=== PATIENT | female | born 1985 | race Caucasian/White ===

== ENCOUNTER 2018-12-15 01:45 | Emergency (ER) | payer OTHER ==
[~2018-12-15] VITALS: Ht 167.6 cm; Wt 85.7 kg
[2018-12-15] MEDS ORDERED: BIRTH CONTROL PO (02:03)
[2018-12-15 03:56] VITALS: BP 112/66
--- NOTE | 2018-12-16 12:45 | EKG ---
[address] [address] [facility] [employer] [place] [address] ELECTROCARDIOGRAM REPORT Name: JAC COKER Room #: [facility]#: [id number] Admission: 12/15/18 Attend Phys: Discharge: 12/15/18 Date of : 89 Report #: [id number] THIS REPORT FOR: //name// [facility] ED Test Date: 2018-12-15 Test Time: 01:55:27 Pat Name: JAC COKER Department: Room: Gender: F Field Services Director: EILEEN : 1985 Requested By: Kami Jamison Order Number: [id number] MD: Raimundo Parra Measurements Intervals [place] Rate: 74 P: 48 PA: 154 QRS: 28 QRSD: 75 T: 35 QT: 372 QTc: 413 Interpretive Statements Sinus rhythm Probable left atrial enlargement No previous ECG available for comparison Electronically Signed On 12-16-2018 12:45:14 CDT by Raimundo Parra [email or web address] <ELECTRONICALLY SIGNED> By: Raimundo Parra MD 12/16/18 1245 0155 [id number] Raimundo Parra MD /RICARDO
== END 2018-12-15 03:59 | disposition home or self-care (01) ==
LOC: ER 01:45
DX: R07.89 Other chest pain (principal)

== ENCOUNTER 2018-12-31 02:10 | Emergency (ER) | payer OTHER ==
[~2018-12-31] VITALS: Ht 170.2 cm; Wt 88.5 kg
[~2018-12-31 02:10] MED LIST: BIRTH CONTROL PO
[2018-12-31 02:35] LABS: ABSOLUTE NEUTROPHILS 5.1 thou/uL (1.4-8.2); BASOPHILS 0.2 % (0.0-2.0); EOSINOPHILS 0.8 % (0.0-3.0); HEMATOCRIT 37.3 % (37.0-47.0); HEMOGLOBIN 12.3 gm/dL (12.0-15.0); LYMPHOCYTES 28.6 % (24.0-44.0); MCH 29.2 pg (26.0-34.0); MCHC 33.1 g/dL (28.0-37.0); MCV 88.3 fL (80.0-100.0); MONOCYTES 7.2 % (1.0-8.0); PLATELET COUNT 232 thou/uL (150-400); POLYS 63.2 % (36.0-66.0); RBC 4.23 mil/uL (4.20-5.00); RDW 12.8 % (10.5-14.5)
[2018-12-31 02:48] LABS: ANION GAP 9 mmol/L (7-16); BUN 13 mg/dL (7-18); CALCIUM 8.5 mg/dL (8.5-10.1); CHLORIDE 105 mmol/L (98-107); CO2 26 mmol/L (21-32); GLUCOSE 111 mg/dL (74-106); POTASSIUM 3.8 mmol/L (3.5-5.1); SODIUM 140 mmol/L (136-145)
[2018-12-31 02:59] LABS: ALBUMIN 3.2 g/dL (3.4-5.0); MAGNESIUM 1.8 mg/dL (1.8-2.4); SGOT 14 U/L (15-37); SGPT 15 U/L (30-65); TOTAL BILIRUBIN 0.2 mg/dL (<0.1-1.0); TOTAL PROTEIN 6.9 g/dL (6.4-8.2); TROPONIN-I <0.06 ng/mL (<0.06)
[2018-12-31 03:13] LABS: AMP/METHAMP Negative (Negative); BARBITURATES Negative (Negative); BENZODIAZEPINES Negative (Negative); COCAINE Negative (Negative); METHADONE Negative (Negative); OPIATES Negative (Negative); PCP Negative (Negative)
[2018-12-31] MEDS ORDERED: LEVSIN0.125 MG PO (04:11)
[2018-12-31] MEDS ORDERED: PRILOSEC OTC20 MG PO (04:11)
[2018-12-31 04:38] VITALS: BP 112/67
--- NOTE | 2018-12-31 08:12 | EKG ---
[address] [address] [place] [address] ELECTROCARDIOGRAM REPORT Name: JAC COKER Room #: [facility]#: [id number] Admission: 12/31/18 Attend Phys: Discharge: 12/31/18 Date of : [birth year] Report #: [id number] THIS REPORT FOR: //name// [facility] ED Test Date: 2018-12-31 Test Time: 02:15:04 Pat Name: JAC COKER Department: Room: Gender: F [employer]: KELSIE : 1985 Requested By: Rolf Malik Order Number: [id number] MD: Brice Browning Measurements Intervals [place] Rate: 75 P: 53 [place]: 141 QRS: 30 QRSD: 88 T: 33 QT: 375 QTc: 419 Interpretive Statements Sinus rhythm Normal tracing Compared to ECG 12/15/2018 01:55:27 No significant changes Electronically Signed On 12-31-2018 8:12:25 CDT by Brice Browning [email or web address] <ELECTRONICALLY SIGNED> By: Brice Browning MD, [facility] 12/31/18 0812 0215 0215 Brice Browning MD, FACC /EPI
== END 2018-12-31 04:39 | disposition home or self-care (01) ==
LOC: ER 02:10
PROVIDERS: Emergency Medicine
DX: R10.9 Unspecified abdominal pain (principal); R07.9 Chest pain, unspecified; Z86.711 Personal history of pulmonary embolism